=== PATIENT | female | born 1935 | race Caucasian/White ===

== ENCOUNTER 2017-04-13 10:23 | Observation (INO) | payer MEDICARE ==
--- NOTE | 2017-04-13 11:27 | EDM.PDOC ---
ED HPI GENERAL MEDICAL PROBLEM - General Chief Complaint: Neurological Problem Stated Complaint: blurred vision Time Seen by Provider: 04/13/17 11:01 Source of Information: Reports: Patient, Family (daughter and daughterinlaw) History Limitations: Reports: No Limitations - History of Present Illness INITIAL COMMENTS - FREE TEXT/NARRATIVE: Patient presents via ambulance and accompanied by dtr-n-law and daughter. Pt lives with dtr-n-law who tells me that at 0930 she went to get pt up from bed and found her already up and dressed which is a little unusual for her. Then pt 's right leg began jumping uncontrollably. She helped patient lay back down and then she kind of glazed over for 1-2 minutes. Pt was making eye contact but otherwise unresponsive. After this she helped patient get up and assisted her to the table for breakfast as usual but today pt had weakness of right leg and complained that it might give out on her. At the table she had another episode of eyes glazed over and otherwise unresponsive for a minute. Called ambulance and brought her in. - Related Data Allergies Allergy/AdvReac Type Severity Reaction Status Date / Time acetaminophen Allergy Cannot Verified 04/13/17 10:51 [From Tylenol-Codeine] Remember codeine Allergy Cannot Verified 04/13/17 10:51 [From Tylenol-Codeine] Remember Home Meds: Home Meds LORazepam [Ativan] 0.5 mg PO QAM 10/17/14 [History] PARoxetine [Paxil] 40 mg PO QAM 10/17/14 [History] Melatonin 3 mg PO BEDTIME 04/13/17 [History] Meloxicam 7.5 mg PO QAM 04/13/17 [History] Past Medical History HEENT History: Reports: Cataract Gastrointestinal History: Reports: Hiatal Hernia Genitourinary History: Reports: UTI, Recurrent 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: Musculoskeletal History: Reports: None Neurological History: Reports: None Psychiatric History: Reports: Anxiety, Depression Endocrine/Metabolic History: Reports: Obesity/BMI 30+ Dermatologic History: Reports: Other (See Below) Other Dermatologic History: CHRONIC 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 - Past Surgical History HEENT Surgical History: Reports: Cataract Surgery GI Surgical History: Reports: Cholecystectomy, Colonoscopy, EGD Female Surgical History: Reports: None Endocrine Surgical History: Reports: None Neurological Surgical History: Reports: None Musculoskeletal Surgical History: Reports: Other (See Below) Other Musculoskeletal Surgeries/Procedures:: BILATERAL WRIST FX Dermatological Surgical History: Reports: None Social & Family History - Tobacco Use Smoking Status *Q: Never Smoker Second Hand Smoke Exposure: No - Caffeine Use Caffeine Use: Reports: Coffee, Soda Other Caffeine Use: DIET AND CAFFEINE FREE. 1 CUP OF COFFEE A DAY - Recreational Drug Use Recreational Drug Use: No ED ROS GENERAL - Review of Systems Review Of Systems: See Below Constitutional: Denies: Fever, Chills HEENT: Reports: Vision Change (she is seeing double at times and lightheaded when upright; she says maybe the vision is more just a little fuzzy than double. ). Denies: Throat Pain Respiratory: Denies: Shortness of Breath, Cough Cardiovascular: Reports: Lightheadedness. Denies: Chest Pain, Edema, Syncope GI/Abdominal: Denies: Abdominal Pain, Diarrhea, Nausea, Vomiting : Denies: Dysuria, Frequency Musculoskeletal: Denies: Neck Pain, Shoulder Pain, Arm Pain, Back Pain Skin: Denies: Cyanosis, Jaundice, Mottled, Pallor, Diaphoresis Neurological: Reports: Dizziness. Denies: Confusion (no more than her usual mild dementia), Headache, Syncope, Trouble Speaking Psychiatric: Denies: Agitation, Anxiety ED EXAM, NEURO - Physical Exam Exam: See Below Exam Limited By: No Limitations General Appearance: Alert, WD/WN, No Apparent Distress Eye Exam: Bilateral Eye: EOMI (with full visual vail), Normal Inspection, PERRL Ears: Normal External Exam, Hearing Grossly Normal Nose: Normal Inspection, No Blood Throat/Mouth: Normal Inspection, Normal Lips, Normal Oropharynx, Normal Voice, No Airway Compromise Head Exam: Atraumatic, Normocephalic Neck: Normal Inspection, Supple, Non-Tender, Full Range of Motion. No: Carotid Bruit Respiratory/Chest: No Respiratory Distress, Lungs Clear, Wheezing (mild transient, not consistent) Cardiovascular: Normal Peripheral Pulses, Regular Rate, Rhythm, No Edema, No Murmur GI/Abdominal: Normal Bowel Sounds, Soft, No Organomegaly, Tender (luq, ruq, low abdomen). No: Rigid Neurological: Alert, Normal Mood/Affect, Normal Dorsiflexion, CN II-XII Intact, Normal Plantar Flexion, No Motor/Sensory Deficits, Oriented x 3, Straight Leg Raise (R) (symmetric with left 5/5), Other (Romberg normal). No: Abnormal Finger to Nose Back Exam: No: CVA Tenderness (L), CVA Tenderness (R) Extremities: Normal Inspection, Non-Tender Psychiatric: Normal Affect, Normal Mood Skin Exam: Warm, Dry, Intact, Normal Color, No Rash Course - Vital Signs Last Recorded V/S: Last Vital Signs Temp 98.0 F 04/13/17 10:30 Pulse 69 04/13/17 10:55 Resp 18 04/13/17 10:55 BP 155/61 H 04/13/17 10:55 Pulse Ox 92 L 04/13/17 10:55 - Orders/Labs/Meds Orders: Active Orders 24 hr Category Date Time Status EKG Documentation Completion [RC] ASDIRECTED Care 04/13/17 10:43 Active Head wo Cont [CT] Stat Exams 04/13/17 10:43 Taken CMP [COMPREHENSIVE METABOLIC PN,CMP] [CHEM] Stat Lab 04/13/17 10:55 Received PTT,PARTIAL THROMBOPLSTIN TIME [COAG] Stat Lab 04/13/17 10:35 Received TROPONIN I [CHEM] Stat Lab 04/13/17 10:35 Received UA W/MICROSCOPIC [URIN] Stat Lab 04/13/17 11:18 Uncollected EKG 12 Lead [EK] Routine Ther 04/13/17 10:42 Ordered Labs: Laboratory Tests 04/13/17 Range/Units 10:55 WBC 5.4 (5.0-10.0) 10^3/uL RBC 4.35 (3.80-5.50) 10^6/uL Hgb 13.8 (12.0-16.0) g/dL Hct 40.3 (37.0-47.0) % MCV 92.6 H (82.0-92.0) fL MCH 31.7 H (27.0-31.0) pg MCHC 34.2 (32.0-36.0) g/dL RDW 11.9 (11.5-14.5) % Plt Count 183 (150-300) 10^3/uL MPV 9.0 (7.4-10.4) fL Neut % (Auto) 62.9 (50.0-70.0) % Lymph % (Auto) 23.7 (20.0-40.0) % [place] % (Auto) 8.8 H (2.0-8.0) % Eos % (Auto) 3.6 H (1.0-3.0) % Baso % (Auto) 1.0 (0.0-1.0) % Neut # (Auto) 3.3 (2.5-7.0) 10^3/uL Lymph # (Auto) 1.3 (1.0-4.0) 10^3/uL [place] # (Auto) 0.5 (0.1-0.8) 10^3/uL Eos # (Auto) 0.2 (0.1-0.3) 10^3/uL Baso # (Auto) 0.1 (0.0-0.1) 10^3/uL - Re-Assessments/Exams Free Text/Narrative Re-Assessment/Exam: 04/13/17 12:15 Patient remained stable throughout ER course. Her right leg continues to feel a little unsupportive when she stands. Exam reveals symmetric strength and normal Romberg. Discussed findings with patient and her dtr-n-law. Also discussed with her PCP, Dr. Adriana Munoz; we will admit for observation. Departure - Departure Time of Disposition: 12:15 Disposition: Refer to Observation Condition: good Clinical Impression: TIA (transient ischemic attack) Qualifiers: Transient cerebral ischemia type: unspecified Qualified Code(s): G45.9 - Transient cerebral ischemic attack, unspecified - Discharge Information Forms: ED Department Discharge - My Orders Last 24 Hours: My Active Orders 04/13/17 10:35 PTT,PARTIAL THROMBOPLSTIN TIME [COAG] Stat TROPONIN I [CHEM] Stat 04/13/17 10:42 EKG 12 Lead [EK] Routine 04/13/17 10:43 EKG Documentation Completion [RC] ASDIRECTED Head wo Cont [CT] Stat 04/13/17 10:55 CMP [COMPREHENSIVE METABOLIC PN,CMP] [CHEM] Stat 04/13/17 11:18 UA W/MICROSCOPIC [URIN] Stat - Assessment/Plan Last 24 Hours: My Active Orders 04/13/17 10:35 PTT,PARTIAL THROMBOPLSTIN TIME [COAG] Stat TROPONIN I [CHEM] Stat 04/13/17 10:42 EKG 12 Lead [EK] Routine 04/13/17 10:43 EKG Documentation Completion [RC] ASDIRECTED Head wo Cont [CT] Stat 04/13/17 10:55 CMP [COMPREHENSIVE METABOLIC PN,CMP] [CHEM] Stat 04/13/17 11:18 UA W/MICROSCOPIC [URIN] Stat
[2017-04-13] MEDS ORDERED: Melatonin 3 MG Tab PO SCH (21:00)
[2017-04-13] MEDS: Sulfamethoxazole/Trimethoprim 800-160 MG Tab PO SCH (21:00)
[2017-04-13] MEDS ORDERED: Phenazopyridine 100 MG Tab PO PRN (21:55)
[2017-04-14 05:39] VITALS: BP 132/65
[2017-04-14] MEDS: Sulfamethoxazole/Trimethoprim 800-160 MG Tab PO SCH (08:20)
--- NOTE | 2017-04-14 08:56 | PCM.DCSUM1 ---
Discharge Summary - Hospital Course Free Text/Narrative:: Viridiana is being discharged today after an overnight observation due to some neurologic changes yesterday. She was already half dressed when her daughter in law went into her room to get her up, which is unusual. She then got up to walk to the kitchen and her leg started to shake uncontrollably (right). She sat down and then "all of a sudden I just lost her" per her daughter in law. She states her eyes were open but she was not responding at all. This lasted about a minute or two and then she came back and was fine, they went to the kitchen to sit down for breakfast and she had another episode where she did not respond and started to "slump over" and so they called an ambulance and she was brought to the ER. EKG was negative, CT head was negative, troponin <0.04. The only thing really off on her labs was a mild UTI. She was started on Bactrim DS 1 tab PO BID and this will last for 5 days. She had no further neurologic changes while in the hospital and she is asking to go home. I did discuss with the daughter in law about whether or not they wanted to start ASA or plavix as this was most likely a TIA but they declined doing anything additional at this time. - Discharge Data Discharge Date: 04/14/17 Discharge Disposition: Home, Self-Care 01 Condition: Good - Discharge Diagnosis/Problem(s) (1) TIA (transient ischemic attack) SNOMED Code(s): 997093833, [id number] ICD Code: G45.9 - TRANSIENT CEREBRAL ISCHEMIC ATTACK, UNSPECIFIED Status: Acute Current Visit: Yes Qualifiers: Transient cerebral ischemia type: unspecified Qualified Code(s): G45.9 - Transient cerebral ischemic attack, unspecified - Discharge Plan Home Medications: Home Meds LORazepam [Ativan] 0.5 mg PO QAM 10/17/14 [History] PARoxetine [Paxil] 40 mg PO QAM 10/17/14 [History] Melatonin 3 mg PO BEDTIME 04/13/17 [History] Meloxicam 7.5 mg PO QAM 04/13/17 [History] Referrals: Adriana Wang MD [Primary Care Provider] - - Discharge Summary/Plan Comment DC Time >30 min.: No - General Info Date of Service: 04/14/17 Admission Dx/Problem (Free Text: TIA - Patient Data Vitals - Most Recent: Last Vital Signs Temp 97.8 F 04/14/17 05:38 Pulse 70 04/14/17 05:38 Resp 18 04/14/17 05:38 BP 132/65 04/14/17 05:38 Pulse Ox 93 L 04/14/17 05:38 Weight - Most Recent: 200 lb I&O - Last 24 hours: Intake & Output 04/13/17 04/14/17 04/14/17 22:59 06:59 14:59 Intake Total 655 300 Balance 655 300 Med Orders - Current: Current Medications [facility]) [facility] [place] Last Admin: 04/14/17 08:20 Dose: 0.5 mg Melatonin (Melatonin) 3 mg PO BEDTIME [facility] Last Admin: 04/13/17 21:00 Dose: 3 mg Meloxicam (Mobic) [facility] [place] Last Admin: 04/14/17 08:21 Dose: 7.5 mg Paroxetine HCl (Paxil) 40 mg PO [facility] Last Admin: 04/14/17 08:20 Dose: 40 mg Phenazopyridine HCl (Pyridium) 100 mg PO TID PRN PRN Reason: urinary pain Last Admin: 04/13/17 22:01 Dose: 100 mg Trimethoprim/Sulfamethoxazole (Septra Ds) 1 tab PO BID [facility] Stop: 04/18/17 21:01 Last Admin: 04/14/17 08:20 Dose: 1 tab Discontinued Medications Meloxicam (Mobic) 7.5 mg PO [facility] - Exam General: Reports: alert, cooperative, no acute distress Lungs: Reports: Clear to auscultation, Normal respiratory effort Cardiovascular: Reports: Regular Rate, Regular Rhythm, No Murmurs Neurological: Reports: no new focal deficit, normal speech, strength equal bilateral, sensation intact, cranial nerves intact *Q Meaningful Use (DIS) - VTE *Q VTE Criteria *Q: - Stroke *Q Stroke Criteria *Q: - AMI *Q AMI Criteria *Q:
[2017-04-14] MEDS ORDERED: Meloxicam 7.5 MG Tab PO SCH (09:00)
[2017-04-14] MEDS ORDERED: LORazepam 0.5 MG Tab PO SCH (09:00)
[2017-04-14] MEDS ORDERED: PARoxetine 20 MG Tab PO SCH (09:00)
== END 2017-04-14 10:35 | disposition home or self-care (01) ==
LOC: KA.ED 10:23 → KA.MS 12:05
PROVIDERS: ADMIT Physician Assistant Surgical; ATTEND Internal Medicine
DX: G45.9 Transient cerebral ischemic attack, unspecified (principal); F41.9 Anxiety disorder, unspecified; F32.9 Major depressive disorder, single episode, unspecified; E66.9 Obesity, unspecified; Z68.30 Body mass index [BMI] 30.0-30.9, adult; Z79.899 Other long term (current) drug therapy; Z88.8 Allergy status to other drugs, medicaments and biological substances; Z90.49 Acquired absence of other specified parts of digestive tract; Z98.890 Other specified postprocedural states
CPT/HCPCS: 36415; 70450; 80053; 81001; 84484; 85025; 85730; 87086; 87088; 87186; 93005; 99285; A9270; G0378; 99219

== ENCOUNTER 2017-07-24 09:42 | Emergency (ER) | payer MEDICARE ==
[2017-07-24 09:53] VITALS: BP 153/67
--- NOTE | 2017-07-24 10:28 | EDM.PDOC ---
ED HPI GENERAL MEDICAL PROBLEM - General Chief Complaint: Genitourinary Problem Stated Complaint: UTI?? Time Seen by Provider: 07/24/17 10:12 Source of Information: Reports: Patient, Family ([id number]) History Limitations: Reports: No Limitations - History of Present Illness INITIAL COMMENTS - FREE TEXT/NARRATIVE: [id number] brings mom with dysuria that started this morning. She recognizes the symptoms and is sure she has a bladder infection. No fever, vomiting, dizziness or abdominal pain. 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: Musculoskeletal History: Reports: None Neurological History: Reports: CVA Psychiatric History: Reports: Anxiety, Dementia, Depression Endocrine/Metabolic History: Reports: Obesity/BMI 30+ Dermatologic History: Reports: Other (See Below) Other Dermatologic History: CHRONIC 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 - Past Surgical History HEENT Surgical History: Reports: Cataract Surgery GI Surgical History: Reports: Cholecystectomy, Colonoscopy, EGD Female Surgical History: Reports: None Endocrine Surgical History: Reports: None Neurological Surgical History: Reports: None Musculoskeletal Surgical History: Reports: Other (See Below) Other Musculoskeletal Surgeries/Procedures:: BILATERAL WRIST FX Dermatological Surgical History: Reports: None Social & Family History - Family History Family Medical History: Noncontributory - Tobacco Use Smoking Status *Q: Never Smoker Second Hand Smoke Exposure: No - Caffeine Use Caffeine Use: Reports: Coffee Other Caffeine Use: DIET AND CAFFEINE FREE. 1 CUP OF COFFEE A DAY - Recreational Drug Use Recreational Drug Use: No ED ROS GENERAL - Review of Systems Review Of Systems: ROS reveals no pertinent complaints other than HPI. ED EXAM, RENAL/ - Physical Exam Exam: See Below Exam Limited By: No Limitations General Appearance: Alert, WD/WN, No Apparent Distress Eye Exam: Bilateral Eye: EOMI, Normal Inspection, PERRL Ears: Normal External Exam, Hearing Grossly Normal Nose: Normal Inspection, No Blood Throat/Mouth: Normal Inspection, Normal Lips, Normal Voice, No Airway Compromise Head: Atraumatic, Normocephalic Neck: Full Range of Motion Respiratory/Chest: No Respiratory Distress, Lungs Clear, Normal Breath Sounds, No Accessory Muscle Use Cardiovascular: Regular Rate, Rhythm, No Murmur GI/Abdominal: Normal Bowel Sounds, Soft, Non-Tender, No Organomegaly Back Exam: No: CVA Tenderness (L), CVA Tenderness (R) Extremities: Normal Inspection, Normal Range of Motion, No Pedal Edema Neurological: Alert, Oriented, Normal Cognition, No Motor/Sensory Deficits Psychiatric: Normal Affect, Normal Mood Skin Exam: Warm, Dry, Intact, Normal Color, No Rash Course - Vital Signs Last Recorded V/S: Last Vital Signs Temp 98.0 F 07/24/17 09:46 Pulse 80 07/24/17 09:46 Resp 18 07/24/17 09:46 BP 153/67 H 07/24/17 09:46 Pulse Ox 97 07/24/17 09:46 - Orders/Labs/Meds Labs: Laboratory Tests 07/24/17 Range/Units 09:45 Specimen Type Urinvoid Urine Color Yellow (YELLOW) Urine Appearance Cloudy H (CLEAR) Urine pH 5.5 (5.0-9.0) Ur Specific [place] >= 1.030 (1.005-1.030) Urine Protein 100 H (NEGATIVE) mg/dL Urine Glucose (UA) Negative (NEGATIVE) mg/dL Urine Ketones Negative (NEGATIVE) mg/dL Urine Occult Blood Moderate H (NEGATIVE) Urine Nitrite Negative (NEGATIVE) Urine Bilirubin Negative (NEGATIVE) Urine Urobilinogen 0.2 (0.2-1.0) E.U./dL Ur Leukocyte Esterase Small H (NEGATIVE) Urine RBC 10-20 H /HPF Urine WBC >100 H /HPF Ur Epithelial Cells Few /LPF Urine Bacteria Moderate H (NONE TO FEW) /HPF - Re-Assessments/Exams Free Text/Narrative Re-Assessment/Exam: 07/24/17 10:28 Discussed findings and treatment plan with pt and dtr-n-law. Pt discharged in stable condition. Departure - Departure Time of Disposition: 10:23 Disposition: Home, Self-Care 01 Condition: Good Clinical Impression: UTI (urinary tract infection), bacterial - Discharge Information Referrals: Adriana Wang MD [Primary Care Provider] - Additional Instructions: 1. Take antibiotic as directed. 2. Drink 8 cups of water daily. 3. Follow up with your PCP in 7-10 days for recheck. 4. Recheck sooner if any worsening.
== END 2017-07-24 10:35 | disposition home or self-care (01) ==
LOC: KA.ED 09:42
DX: N39.0 Urinary tract infection, site not specified (principal); B96.89 Other specified bacterial agents as the cause of diseases classified elsewhere; F41.9 Anxiety disorder, unspecified; F32.9 Major depressive disorder, single episode, unspecified; F03.90 Unspecified dementia, unspecified severity, without behavioral disturbance, psychotic disturbance, mood disturbance, and anxiety; Z87.440 Personal history of urinary (tract) infections; Z90.49 Acquired absence of other specified parts of digestive tract; Z88.5 Allergy status to narcotic agent; Z98.49 Cataract extraction status, unspecified eye; Z86.73 Personal history of transient ischemic attack (TIA), and cerebral infarction without residual deficits; Z98.890 Other specified postprocedural states
CPT/HCPCS: 81001; 87086; 99283

== ENCOUNTER 2017-10-02 01:25 | Inpatient (IN) | payer MEDICARE ==
--- NOTE | 2017-10-02 01:56 | EDM.PDOC ---
ED HPI GENERAL MEDICAL PROBLEM - General Chief Complaint: Neuro Symptoms/Deficits Stated Complaint: L side weakness Time Seen by Provider: 10/02/17 01:35 Source of Information: Reports: Patient, EMS, Family History Limitations: Reports: No Limitations - History of Present Illness INITIAL COMMENTS - FREE TEXT/NARRATIVE: 82 YO WF presents to ER by EMS with 8 hour history of left sided weakness. Daughter states patient was out to dinner tonight when she began to complain of difficulty ambulating due to some left lower extremity weakness. Pt was able to have dinner and ambulate with minimal difficulty to the car and home. Pt was able to sit in her chair and around 9:30pm was ready for bed. Pt was able to ambulate to her bedroom while still complaining of some mild left sided lower extremity weakness. Pt woke multiple times (approximately every 30 minutes) to use the restroom and was unsteady with her gait. Pt fell twice but denies any injury. Pt woke at 1:30am unable to move her left side prompting EMS to transfer to ER. Pt's symptoms have resolved at time of history and physical exam. Pt and family deny any slurred speech, dysphagia, confusion. Pt denies any pain- no chest pain, abdominal pain or dysuria. Pt reports urinary frequency and urgency. Onset Date: 10/01/17 Onset Time: 18:00 Duration: Hour(s): (8) Location: Reports: Upper Extremity, Left, Lower Extremity, Left, Generalized Severity: Mild Improves with: Reports: None Worsens with: Reports: None Associated Symptoms: Reports: No Other Symptoms, Weakness. Denies: Confusion, Chest Pain, Cough, Fever/Chills, Headaches, Nausea/Vomiting, Shortness of Breath , Syncope - Related Data Allergies Allergy/AdvReac Type Severity Reaction Status Date / Time codeine Allergy Cannot Verified 10/02/17 01:28 Remember Home Meds: Home Meds LORazepam [Ativan] 0.5 mg PO QAM 10/17/14 [History] PARoxetine [Paxil] 40 mg PO QAM 10/17/14 [History] Meloxicam 7.5 mg PO QAM 04/13/17 [History] Acetaminophen [Tylenol] 650 mg PO BID PRN 07/24/17 [History] Past Medical History HEENT History: Reports: Cataract Gastrointestinal History: Reports: Hiatal Hernia Genitourinary History: Reports: UTI, Recurrent [employer] History: Reports: Musculoskeletal History: Reports: None Neurological History: Reports: CVA Psychiatric History: Reports: Anxiety, Dementia, Depression Endocrine/Metabolic History: Reports: Obesity/BMI 30+ Dermatologic History: Reports: Other (See Below) Other Dermatologic History: CHRONIC 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 - Past Surgical History HEENT Surgical History: Reports: Cataract Surgery GI Surgical History: Reports: Cholecystectomy, Colonoscopy, EGD Female Surgical History: Reports: None Endocrine Surgical History: Reports: None Neurological Surgical History: Reports: None Musculoskeletal Surgical History: Reports: Other (See Below) Other Musculoskeletal Surgeries/Procedures:: BILATERAL WRIST FX Dermatological Surgical History: Reports: None Social & Family History - Family History Family Medical History: Noncontributory - Tobacco Use Smoking Status *Q: Never Smoker Second Hand Smoke Exposure: No - Caffeine Use Caffeine Use: Reports: Coffee Other Caffeine Use: DIET AND CAFFEINE FREE. 1 CUP OF COFFEE A DAY - Recreational Drug Use Recreational Drug Use: No ED ROS GENERAL - Review of Systems Review Of Systems: See Below Constitutional: Reports: No Symptoms HEENT: Reports: No Symptoms Respiratory: Reports: No Symptoms Cardiovascular: Reports: No Symptoms Endocrine: Reports: No Symptoms GI/Abdominal: Reports: No Symptoms : Reports: Frequency, Urgency Musculoskeletal: Reports: No Symptoms Skin: Reports: No Symptoms Neurological: Reports: Difficulty Walking, Weakness, Gait Disturbance. Denies: Confusion, Dizziness, Headache, Numbness, Syncope, Trouble Speaking, Change in Speech Psychiatric: Reports: No Symptoms Hematologic/Lymphatic: Reports: No Symptoms Immunologic: Reports: No Symptoms ED EXAM, NEURO - Physical Exam Exam: See Below Exam Limited By: No Limitations General Appearance: Alert, WD/WN, No Apparent Distress Eye Exam: Bilateral Eye: EOMI, PERRL Throat/Mouth: Normal Inspection, Normal Lips, Normal Teeth, Normal Gums, Normal Oropharynx, Normal Voice, No Airway Compromise Head Exam: Atraumatic, Normocephalic Neck: Normal Inspection, Supple, Non-Tender, Full Range of Motion Respiratory/Chest: No Respiratory Distress, Lungs Clear, Normal Breath Sounds, No Accessory Muscle Use, Chest Non-Tender Cardiovascular: Normal Peripheral Pulses, Regular Rate, Rhythm, No Edema, No Gallop, No JVD, No Murmur, No Rub GI/Abdominal: Normal Bowel Sounds, Soft, Non-Tender, No Organomegaly, No Distention, No Abnormal Bruit, No Mass Neurological: Alert, Normal Mood/Affect, Normal Dorsiflexion, CN II-XII Intact, Normal Plantar Flexion, Normal Reflexes, No Motor/Sensory Deficits, Oriented x 3 Back Exam: Normal Inspection, Full Range of Motion, NT Extremities: Normal Inspection, Normal Range of Motion, Non-Tender, No Pedal Edema, Normal Capillary Refill Psychiatric: Normal Affect, Normal Mood Skin Exam: Warm, Dry, Intact, Normal Color, No Rash EKG INTERPRETATION EKG Date: 10/02/17 Time: 01:59 Rhythm: NSR Rate (Beats/Min): 73 [place]: Normal P-Wave: Present QRS: Normal ST-T: Normal QT: Normal Comparison: No Change Course - Vital Signs Last Recorded V/S: Last Vital Signs Temp 37.4 C 10/02/17 01:30 Pulse 73 10/02/17 01:55 Resp 18 10/02/17 02:26 BP 191/77 H 10/02/17 02:26 Pulse Ox 92 L 10/02/17 02:26 - Orders/Labs/Meds Orders: Active Orders 24 hr Category Date Time Status EKG Documentation Completion [RC] ASDIRECTED Care 10/02/17 01:48 Ordered Chest 1V Frontal [CR] Stat Exams 10/02/17 01:48 Ordered Head wo Cont [CT] Stat Exams 10/02/17 01:48 Ordered ESR [SEDIMENTATION RATE MANUAL] [HEME] Stat Lab 10/02/17 01:40 Stop Req Sodium Chloride 0.9% [Normal Saline] 500 ml Med 10/02/17 02:00 Ordered IV .BOLUS EKG 12 Lead [EK] Routine Ther 10/02/17 01:48 Ordered Medication Orders Sodium Chloride (Normal Saline) 500 mls @ 500 drops/hr IV .BOLUS BEKA Labs: Laboratory Tests 10/02/17 10/02/17 10/02/17 Range/Units 01:40 01:40 01:40 WBC 14.4 H (5.0-10.0) 10^3/uL RBC 4.39 (3.80-5.50) 10^6/uL Hgb 13.6 (12.0-16.0) g/dL Hct 42.0 (37.0-47.0) % MCV 95.8 H (82.0-92.0) fL MCH 31.0 (27.0-31.0) pg MCHC 32.4 (32.0-36.0) g/dL RDW 12.2 (11.5-14.5) % Plt Count 22 L* (150-300) 10^3/uL MPV 9.6 (7.4-10.4) fL PT 9.5 (8.9-11.4) SEC INR 0.9 (0.9-1.1) APTT (20.8-31.2) SEC Sodium 140 (136-145) mmol/L Potassium 4.0 (3.3-5.3) mmol/L Chloride 104 (98-115) mmol/L Carbon Dioxide 25.1 (21.0-32.0) mmol/L BUN 20 (6-25) mg/dL Creatinine 0.95 (0.51-1.17) mg/dL Est Cr Clr Drug Dosing 47.64 mL/min Estimated GFR (MDRD) 57 mL/min Glucose 96 (70-110) mg/dL POC Glucose (74-106) mg/dl Calcium 9.5 (8.7-10.3) mg/dL Total Bilirubin 0.4 (0.2-1.0) mg/dL AST 21 (15-37) U/L ALT 21 (12-78) U/L Alkaline Phosphatase 87 (46-116) IU/L Creatine Kinase 65 (26-276) U/L CK-MB (CK-2) 1.20 (0.00-4.30) ng/mL Troponin I < 0.04 (0.00-0.070) ng/mL Total Protein 7.0 (6.4-8.2) g/dL Albumin 3.87 (3.00-4.80) g/dL Specimen Type Urine Color (YELLOW) Urine Appearance (CLEAR) Urine pH (5.0-9.0) Ur Specific [place] (1.005-1.030) Urine Protein (NEGATIVE) mg/dL Urine Glucose (UA) (NEGATIVE) mg/dL Urine Ketones (NEGATIVE) mg/dL Urine Occult Blood (NEGATIVE) Urine Nitrite (NEGATIVE) Urine Bilirubin (NEGATIVE) Urine Urobilinogen (0.2-1.0) E.U./dL Ur Leukocyte Esterase (NEGATIVE) Urine RBC /HPF Urine WBC /HPF Ur Epithelial Cells /LPF Urine Bacteria (NONE TO FEW) /HPF 10/02/17 10/02/17 10/02/17 Range/Units 01:40 01:45 02:05 WBC (5.0-10.0) 10^3/uL RBC (3.80-5.50) 10^6/uL Hgb (12.0-16.0) g/dL Hct (37.0-47.0) % MCV (82.0-92.0) fL MCH (27.0-31.0) pg MCHC (32.0-36.0) g/dL RDW (11.5-14.5) % Plt Count (150-300) 10^3/uL MPV (7.4-10.4) fL PT (8.9-11.4) SEC INR (0.9-1.1) APTT 22.0 (20.8-31.2) SEC Sodium (136-145) mmol/L Potassium (3.3-5.3) mmol/L Chloride (98-115) mmol/L Carbon Dioxide (21.0-32.0) mmol/L BUN (6-25) mg/dL Creatinine (0.51-1.17) mg/dL Est Cr Clr Drug Dosing mL/min Estimated GFR (MDRD) mL/min Glucose (70-110) mg/dL POC Glucose 92 (74-106) mg/dl Calcium (8.7-10.3) mg/dL Total Bilirubin (0.2-1.0) mg/dL AST (15-37) U/L ALT (12-78) U/L Alkaline Phosphatase (46-116) IU/L Creatine Kinase (26-276) U/L CK-MB (CK-2) (0.00-4.30) ng/mL Troponin I (0.00-0.070) ng/mL Total Protein (6.4-8.2) g/dL Albumin (3.00-4.80) g/dL Specimen Type Urin[place]ath Urine Color Light yellow (YELLOW) Urine Appearance Slightly cloudy H (CLEAR) Urine pH 6.5 (5.0-9.0) Ur Specific [place] 1.010 (1.005-1.030) Urine Protein Negative (NEGATIVE) mg/dL Urine Glucose (UA) Negative (NEGATIVE) mg/dL Urine Ketones Negative (NEGATIVE) mg/dL Urine Occult Blood Trace-intact H (NEGATIVE) Urine Nitrite Negative (NEGATIVE) Urine Bilirubin Negative (NEGATIVE) Urine Urobilinogen 0.2 (0.2-1.0) E.U./dL Ur Leukocyte Esterase Trace H (NEGATIVE) Urine RBC 5-10 H /HPF Urine WBC 5-10 H /HPF Ur Epithelial Cells Moderate H /LPF Urine Bacteria Moderate H (NONE TO FEW) /HPF Meds: Medications Generic Name Dose Route Start Last Admin Trade Name Freq PRN Reason Stop Dose Admin Sodium Chloride 500 mls @ 500 drops/hr 10/02/17 02:00 Normal Saline IV .BOLUS BEKA - Radiology Interpretation Free Text/Narrative:: CT head- NAD CXR- NAD; CM Departure - Departure Time of Disposition: 02:56 Disposition: Admitted As Inpatient 68 Condition: Fair Clinical Impression: Weakness, Thrombocytopenia Urinary tract infection Qualifiers: Urinary tract infection type: acute cystitis Hematuria presence: without hematuria Qualified Code(s): N30.00 - Acute cystitis without hematuria Hypertension Qualifiers: Hypertension type: unspecified Qualified Code(s): I10 - Essential (primary) hypertension - Discharge Information Forms: ED Department Discharge - My Orders Last 24 Hours: My Active Orders 10/02/17 01:40 ESR [SEDIMENTATION RATE MANUAL] [HEME] Stat 10/02/17 01:48 EKG Documentation Completion [RC] ASDIRECTED Chest 1V Frontal [CR] Stat Head wo Cont [CT] Stat EKG 12 Lead [EK] Routine 10/02/17 02:00 Sodium Chloride 0.9% [Normal Saline] 500 ml IV .BOLUS - Assessment/Plan Last 24 Hours: My Active Orders 10/02/17 01:40 ESR [SEDIMENTATION RATE MANUAL] [HEME] Stat 10/02/17 01:48 EKG Documentation Completion [RC] ASDIRECTED Chest 1V Frontal [CR] Stat Head wo Cont [CT] Stat EKG 12 Lead [EK] Routine 10/02/17 02:00 Sodium Chloride 0.9% [Normal Saline] 500 ml IV .BOLUS Assessment:: 1. left sided weakness- resolved 2. hypertension 3. urinary tract infection 4. thrombocytopenia 5. leukocytosis Plan: 1. admit to hospital- [facility] 2. rocephin 1g IV QD 3. vasotec 1.25mg IV PRN hypertension 4. ASA 325mg PO QD 5. recheck CBC in am
[2017-10-02] MEDS ORDERED: Sodium Chloride 0.9% 500 ML IV SCH (02:00)
[2017-10-02 02:15] LABS: CHLORIDE,CL 104 mmol/L (98-115); SODIUM,NA 140 mmol/L (136-145)
[2017-10-02] MEDS ORDERED: cefTRIAXone 1 GM Vial ONE (03:03)
[2017-10-02] MEDS ORDERED: Enalaprilat 1.25 MG/ML SDV IVPUSH PRN (03:05)
[2017-10-02] MEDS ORDERED: Acetaminophen 325 MG Tab PO PRN (03:06)
[2017-10-02] MEDS ORDERED: cefTRIAXone 1 GM in Sodium Chloride 0.9% 50 ML IV SCH (03:34)
[2017-10-02] MEDS: Sodium Chloride 0.9% 5 ML Syringe FLUSH PRN ×2 (03:38→11:28)
[2017-10-02] MEDS ORDERED: cefTRIAXone 1 GM Vial IVPUSH SCH (04:00)
[2017-10-02] MEDS: Aspirin 325 MG Tab.EC PO SCH ×2 (04:06→09:23)
[2017-10-02] MEDS ORDERED: EPINEPHrine 1:10,000 1 MG/10 ML Syringe IVPUSH PRN (07:27)
[2017-10-02] MEDS ORDERED: Nitroglycerin 0.4 MG Tab.SL SL PRN (07:27)
[2017-10-02] MEDS ORDERED: Atropine 0.1 MG/ML 10 ML Syringe IVPUSH PRN (07:27)
[2017-10-02] MEDS ORDERED: Lidocaine 2% 100 MG/5 ML Syringe IVPUSH PRN (07:27)
[2017-10-02] MEDS ORDERED: PAROXETINE 40 MG PO SCH (09:00)
[2017-10-02] MEDS: LORazepam 0.5 MG Tab PO SCH (09:23)
[2017-10-02] MEDS ORDERED: PARoxetine 20 MG Tab PO ONE (09:23)
--- NOTE | 2017-10-02 11:51 | PCM.PN ---
- General Info Date of Service: 10/02/17 Admission Dx/Problem (Free Text): TIA, left sided weakness. - Review of Systems Systems Review Comment:: Viridiana is seen today on inpatient rounds. She was admitted on 10/01/17 with left sided weakness and concern for TIA. Symptoms had been present for about 8 hours prior to EMS transportation. Her [id number] provides some of the history. Viridiana states "I just can't make my legs work, it's like they are bolted to the cement floor". She was also noted to have a mild UTI and has been started on ceftriaxone, culture pending. She has no KENNEDY, she feels slightly dizzy today. She was noted to have HTN, had been on HCTZ in the past but was discontinued due to normal blood pressure and desires to reduce medications that were unnecessary. Her [id number] also would like abdominal imaging as Viridiana's weight has been stable but her abdomen size is increasing and she complains of generalized abdominal pain. She has had BM's. No visual changes, no numbness or tingling. - Patient Data Vitals - Most Recent: Last Vital Signs Temp 99.1 F 10/02/17 07:00 Pulse 82 10/02/17 07:00 Resp 18 10/02/17 07:00 BP 164/81 H 10/02/17 07:00 Pulse Ox 94 L 10/02/17 07:00 Weight - Most Recent: 200 lb I&O - Last 24 Hours: Intake & Output 10/01/17 10/02/17 10/02/17 22:59 06:59 14:59 Intake Total 60 Output Total 550 Balance -490 Med Orders - Current: Current Medications Acetaminophen (Tylenol) 650 mg PO BID PRN PRN Reason: Pain Atropine Sulfate (Atropine 0.1 Mg/Ml) 0 mg IVPUSH ASDIRECTED PRN PRN Reason: Heart Ceftriaxone Sodium (Rocephin) 1 gm IVPUSH Q24H [facility] Last Admin: 10/02/17 04:08 Dose: Not Given Clopidogrel Bisulfate (Plavix) 75 mg PO DAILY [facility] Epinephrine HCl (Epinephrine 1:10,000) 1 mg IVPUSH ASDIRECTED PRN PRN Reason: Heart Lidocaine HCl (Xylocaine 2%) 0 mg IVPUSH ASDIRECTED PRN PRN Reason: Heart Lisinopril (Prinivil) 10 mg PO DAILY [facility] Lorazepam (Ativan) 0.5 mg PO QAM [facility] Last Admin: 10/02/17 09:23 Dose: 0.5 mg Nitroglycerin (Nitrostat) 0.4 mg SL ASDIRECTED PRN PRN Reason: Heart Non-Formulary Medication (Paroxetine [Paxil]) 40 mg PO QAM [facility] Last Admin: 10/02/17 09:23 Dose: 40 mg Non-Formulary Medication (Meloxicam [Meloxicam]) 7.5 mg PO QAM [facility] Sodium Chloride (Syrex Flush) 5 ml FLUSH Q8HR PRN PRN Reason: Keep Vein Open Last Admin: 10/02/17 11:28 Dose: 5 ml Discontinued Medications Aspirin (Ecotrin) 325 mg PO DAILY [facility] Last Admin: 10/02/17 09:23 Dose: 325 mg Ceftriaxone Sodium (Rocephin) Confirm Administered Dose 1 gm .ROUTE .STK-MED ONE Stop: 10/02/17 03:04 Last Admin: 10/02/17 03:30 Dose: 1 gm Enalaprilat (Vasotec Iv) 1.25 mg IVPUSH Q6H PRN PRN Reason: Hypertension Sodium Chloride (Normal Saline) 500 mls @ 500 drops/hr IV .BOLUS BEKA - Exam General: Alert, Oriented, Cooperative, No Acute Distress Lungs: Clear to Auscultation, Normal Respiratory Effort Cardiovascular: Regular Rate, Regular Rhythm, No Murmurs GI/Abdominal Exam: Normal Bowel Sounds, Soft, No Organomegaly, No Distention, Tender Extremities: Normal Inspection, No Pedal Edema Neurological: No New Focal Deficit, Normal Speech, Strength Equal Bilateral ( Despite her stating that she cannot get her legs to move she is able to move them freely on command while sitting in the chair and has equal strength bilaterally against resistance.), Sensation Intact, Cranial Nerves Intact - Problem List & Annotations (1) Hypertension SNOMED Code(s): 64089369 Code(s): I10 - ESSENTIAL (PRIMARY) HYPERTENSION Status: Acute Current Visit: Yes Qualifiers: Hypertension type: unspecified Qualified Code(s): I10 - Essential (primary ) hypertension (2) Urinary tract infection SNOMED Code(s): 80319714 Code(s): N39.0 - URINARY TRACT INFECTION, SITE NOT SPECIFIED Status: Acute Current Visit: Yes Qualifiers: Urinary tract infection type: acute cystitis Hematuria presence: without hematuria Qualified Code(s): N30.00 - Acute cystitis without hematuria (3) Weakness SNOMED Code(s): 66055263 Code(s): R53.1 - WEAKNESS Status: Acute Current Visit: Yes (4) TIA (transient ischemic attack) SNOMED Code(s): 411873742 Code(s): G45.9 - TRANSIENT CEREBRAL ISCHEMIC ATTACK, UNSPECIFIED Status: Acute Current Visit: No Qualifiers: Transient cerebral ischemia type: unspecified Qualified Code(s): G45.9 - Transient cerebral ischemic attack, unspecified (5) Dementia SNOMED Code(s): 70657991 Code(s): F03.90 - UNSPECIFIED DEMENTIA WITHOUT BEHAVIORAL DISTURBANCE Status: Acute Current Visit: Yes (6) Increased abdominal girth SNOMED Code(s): 472386123 Code(s): R19.8 - OTH SYMPTOMS AND SIGNS INVOLVING THE DGSTV SYS AND ABDOMEN Status: Acute Current Visit: Yes - Problem List Review Problem List Initiated/Reviewed/Updated: Yes - My Orders Last 24 Hours: My Active Orders 10/02/17 03:45 CULTURE WOUND [RM] Routine 10/02/17 11:45 PT Evaluation and Treatment [CONS] Routine Abdomen Pelvis w Cont [CT] Routine Clopidogrel [Plavix] 75 mg PO DAILY Lisinopril [Prinivil] 10 mg PO DAILY 10/03/17 09:00 Meloxicam [Meloxicam] 7.5 mg PO QAM - Assessment Assessment:: TIA Weakness UTI HTN Arthritis Dementia Increasing abdominal girth - Plan Plan:: TIA. Discontinue ASA, start plavix 75mg PO daily. MRI on of brain with and without contrast as well as carotid U/S bilaterally. Weakness. PT eval and treat on Wednesday. UTI. Continue rocephin, culture pending. HTN. Start lisinopril 10 mg PO daily. Arthritis. Restart meloxicam. Dementia. Stable. Increasing abdominal girth. CT abdomen/pelvis with contrast today.
[2017-10-02] MEDS: Clopidogrel 75 MG Tab PO SCH (12:23)
[2017-10-02] MEDS: Lisinopril 10 MG Tab PO SCH (12:25)
[2017-10-02] MEDS: Iopamidol 612 MG/ML 75 ML Bottle IV ONE ×2 (15:40→18:26)
[2017-10-02] MEDS ORDERED: Sodium Chloride 0.9% 50 ML SDV FLUSH SCH (16:30)
[2017-10-03] MEDS ORDERED: cefTRIAXone 1 GM Vial IM ONE (00:43)
[2017-10-03 08:39] LABS: CHLORIDE,CL 106 mmol/L (98-115); SODIUM,NA 141 mmol/L (136-145)
[2017-10-03] MEDS: Lisinopril 10 MG Tab PO SCH (09:18)
[2017-10-03] MEDS: Clopidogrel 75 MG Tab PO SCH (09:18)
[2017-10-03] MEDS: PARoxetine 20 MG Tab PO SCH (09:18)
[2017-10-03] MEDS: LORazepam 0.5 MG Tab PO SCH (09:19)
--- NOTE | 2017-10-03 11:43 | PCM.PN ---
- General Info Date of Service: 10/03/17 Admission Dx/Problem (Free Text): TIA, left sided weakness. Subjective Update: Pt reports she is feeling well today. Pt denies any abdominal pain today. Pt states she is eating and drinking well. Pt reports she was able to ambulate to bathroom and take a shower with assistance today. Functional Status: Reports: Pain Controlled, Tolerating Diet, Ambulating, Urinating - Review of Systems General: Reports: No Symptoms HEENT: Reports: No Symptoms Pulmonary: Reports: No Symptoms Cardiovascular: Reports: No Symptoms Gastrointestinal: Reports: No Symptoms Genitourinary: Reports: No Symptoms Musculoskeletal: Reports: No Symptoms Skin: Reports: No Symptoms Neurological: Reports: No Symptoms Psychiatric: Reports: No Symptoms - Patient Data Vitals - Most Recent: Last Vital Signs Temp 36.9 C 10/03/17 06:52 Pulse 72 10/03/17 06:52 Resp 20 10/03/17 06:52 BP 137/76 10/03/17 09:18 Pulse Ox 92 L 10/03/17 06:52 Weight - Most Recent: 90.718 kg I&O - Last 24 Hours: Intake & Output 10/02/17 10/03/17 10/03/17 22:59 06:59 14:59 Intake Total 1250 220 Output Total 750 700 Balance 500 -480 Lab Results Last 24 Hours: Laboratory Results - last 24 hr 10/03/17 10/03/17 Range/Units 07:30 07:30 WBC 7.1 (5.0-10.0) 10^3/uL RBC 4.22 (3.80-5.50) 10^6/uL Hgb 12.8 (12.0-16.0) g/dL Hct 40.0 (37.0-47.0) % MCV 94.7 H (82.0-92.0) fL MCH 30.4 (27.0-31.0) pg MCHC 32.1 (32.0-36.0) g/dL RDW 12.1 (11.5-14.5) % Plt Count 187 (150-300) 10^3/uL MPV 8.9 (7.4-10.4) fL Neut % (Auto) 58.2 (50.0-70.0) % Lymph % (Auto) 27.4 (20.0-40.0) % [place] % (Auto) 10.3 H (2.0-8.0) % Eos % (Auto) 3.2 H (1.0-3.0) % Baso % (Auto) 0.9 (0.0-1.0) % Neut # (Auto) 4.2 (2.5-7.0) 10^3/uL Lymph # (Auto) 1.9 (1.0-4.0) 10^3/uL [facility] # (Auto) 0.7 (0.1-0.8) 10^3/uL Eos # (Auto) 0.2 (0.1-0.3) 10^3/uL Baso # (Auto) 0.1 (0.0-0.1) 10^3/uL Sodium 141 (136-145) mmol/L Potassium 3.9 (3.3-5.3) mmol/L Chloride 106 (98-115) mmol/L Carbon Dioxide 26.9 (21.0-32.0) mmol/L BUN 18 (6-25) mg/dL Creatinine 0.89 (0.51-1.17) mg/dL Est Cr Clr Drug Dosing 50.86 mL/min Estimated GFR (MDRD) > 60 mL/min Glucose 95 (70-110) mg/dL Calcium 9.2 (8.7-10.3) mg/dL Med Orders - Current: Current Medications Acetaminophen (Tylenol) 650 mg PO BID PRN PRN Reason: Pain Clopidogrel Bisulfate (Plavix) 75 mg PO DAILY [facility] Last Admin: 10/03/17 09:18 Dose: 75 mg Lisinopril (Prinivil) 10 mg PO DAILY [facility] Last Admin: 10/03/17 09:18 Dose: 10 mg Lorazepam (Ativan) 0.5 mg PO QAM [facility] Last Admin: 10/03/17 09:19 Dose: 0.5 mg Meloxicam (Mobic) 7.5 mg PO QAM [facility] Last Admin: 10/03/17 09:16 Dose: 7.5 mg Paroxetine HCl (Paxil) 40 mg PO DAILY [facility] Last Admin: 10/03/17 09:18 Dose: 40 mg Sodium Chloride (Syrex Flush) 5 ml FLUSH Q8HR PRN PRN Reason: Keep Vein Open Last Admin: 10/02/17 11:28 Dose: 5 ml Sodium Chloride (Normal Saline) 50 ml FLUSH ASDIRECTED [facility] Discontinued Medications Aspirin (Ecotrin) 325 mg PO DAILY [facility] Last Admin: 10/02/17 09:23 Dose: 325 mg Atropine Sulfate (Atropine 0.1 Mg/Ml) 0 mg IVPUSH ASDIRECTED PRN PRN Reason: Heart Ceftriaxone Sodium (Rocephin) Confirm Administered Dose 1 gm .ROUTE .STK-MED ONE Stop: 10/02/17 03:04 Last Admin: 10/02/17 03:30 Dose: 1 gm Ceftriaxone Sodium (Rocephin) 1 gm IVPUSH Q24H [facility] Last Admin: 10/02/17 04:08 Dose: Not Given Ceftriaxone Sodium (Rocephin) 1 gm IM ONETIME ONE Stop: 10/03/17 00:44 Last Admin: 10/03/17 01:09 Dose: 1 gm Enalaprilat (Vasotec Iv) 1.25 mg IVPUSH Q6H PRN PRN Reason: Hypertension Epinephrine HCl (Epinephrine 1:10,000) 1 mg IVPUSH ASDIRECTED PRN PRN Reason: Heart Sodium Chloride (Normal Saline) 500 mls @ 500 drops/hr IV .BOLUS [facility] Iopamidol (Isovue-300 (61%)) 75 ml IV ONETIME ONE Stop: 10/02/17 16:20 Last Admin: 10/02/17 18:26 Dose: Not Given Lidocaine HCl (Xylocaine 2%) 0 mg IVPUSH ASDIRECTED PRN PRN Reason: Heart Nitroglycerin (Nitrostat) 0.4 mg SL ASDIRECTED PRN PRN Reason: Heart Non-Formulary Medication (Paroxetine [Paxil]) 40 mg PO QAM [facility] Last Admin: 10/02/17 09:23 Dose: 40 mg - Exam General: Alert, Oriented Lungs: Clear to Auscultation, Normal Respiratory Effort Cardiovascular: Regular Rate, Regular Rhythm GI/Abdominal Exam: Normal Bowel Sounds, Soft, Non-Tender, No Organomegaly, No Distention, No Abnormal Bruit, No Mass, Pelvis Stable Back Exam: Normal Inspection, Full Range of Motion Extremities: Normal Inspection, Normal Range of Motion, Non-Tender, No Pedal Edema, Normal Capillary Refill Skin: Warm, Dry, Intact Neurological: No New Focal Deficit Psy/Mental Status: Alert, Normal Affect, Normal Mood - Problem List Review Problem List Initiated/Reviewed/Updated: Yes - Assessment Assessment:: TIA Weakness UTI HTN Arthritis Dementia Increasing abdominal girth - Plan Plan:: TIA. Discontinue ASA, start plavix 75mg PO daily. MRI on of brain with and without contrast as well as carotid U/S bilaterally. Weakness. PT eval and treat on Wednesday. UTI. change antibiotic to keflex 500mg PO Q6- no growth on urine culture after 2 days HTN. Start lisinopril 10 mg PO daily. Arthritis. Restart meloxicam. Dementia. Stable. Increasing abdominal girth. CT abdomen/pelvis- NAD; large bowel movement this am. No abdominal complaints today
[2017-10-03] MEDS: Cephalexin 250 MG Cap PO SCH ×3 (12:26→23:52)
[2017-10-04] MEDS: Cephalexin 250 MG Cap PO SCH ×4 (05:52→22:27)
[2017-10-04] MEDS: Lisinopril 10 MG Tab PO SCH (08:57)
[2017-10-04] MEDS: Clopidogrel 75 MG Tab PO SCH (08:58)
[2017-10-04] MEDS: PARoxetine 20 MG Tab PO SCH (08:58)
[2017-10-04] MEDS: LORazepam 0.5 MG Tab PO SCH (08:59)
--- NOTE | 2017-10-04 13:55 | PCM.PN ---
- General Info Date of Service: 10/04/17 Admission Dx/Problem (Free Text): TIA, left sided weakness. - Review of Systems Systems Review Comment:: Viridiana is seen today on inpatient rounds. She did well through the weekend. She had a large BM yesterday and is feeling better. CT abdomen/pelvis done due to increasing abdominal girth without weight change was WNL. She had an episode this morning where her baoulyzk-vz-dhv stated her left arm was "waving around and I asked her what she was doing and she was trying to get it to her hair but it wasn't going there". PT toya was in and felt that she would be appropriate to go to the MD, at least for some PT, prior to going home as she would be more than an assist of 1 at this time and she is still having some difficulty with her gait. Sabra (Cnybzgwa-bh-mho), mentioned that her family may not want her to be on any medications and "just let nature take it's course if that is what is meant to be", given her dementia. Sabra wanted PT's thoughts and then would be in touch with the family about what they decided to do. Viridiana is denying any pain. - Patient Data Vitals - Most Recent: Last Vital Signs Temp 98.5 F 10/04/17 06:41 Pulse 74 10/04/17 06:41 Resp 18 10/04/17 06:41 BP 128/64 10/04/17 08:57 Pulse Ox 94 L 10/04/17 08:20 Weight - Most Recent: 200 lb I&O - Last 24 Hours: Intake & Output 10/03/17 10/04/17 10/04/17 22:59 06:59 14:59 Intake Total 500 300 Balance 500 300 Med Orders - Current: Current Medications Acetaminophen (Tylenol) 650 mg PO BID PRN PRN Reason: Pain Cephalexin (Keflex) 500 mg PO Q6HR [facility] Last Admin: 10/04/17 11:39 Dose: 500 mg Clopidogrel Bisulfate (Plavix) 75 mg PO DAILY [facility] Last Admin: 10/04/17 08:58 Dose: 75 mg Lisinopril (Prinivil) 10 mg PO DAILY [facility] Last Admin: 10/04/17 08:57 Dose: 10 mg Lorazepam (Ativan) 0.5 mg PO QAM [facility] Last Admin: 10/04/17 08:59 Dose: 0.5 mg [facility] ([facility]) [facility] Last Admin: 10/04/17 08:58 Dose: 7.5 mg Paroxetine HCl (Paxil) 40 mg PO DAILY [facility] Last Admin: 10/04/17 08:58 Dose: 40 mg Sodium Chloride (Syrex Flush) 5 ml FLUSH Q8HR PRN PRN Reason: Keep Vein Open Last Admin: 10/02/17 11:28 Dose: 5 ml Discontinued Medications Aspirin (Ecotrin) 325 mg PO DAILY [facility] Last Admin: 10/02/17 09:23 Dose: 325 mg Atropine Sulfate (Atropine 0.1 Mg/Ml) 0 mg IVPUSH ASDIRECTED PRN PRN Reason: Heart Ceftriaxone Sodium (Rocephin) Confirm Administered Dose 1 gm .ROUTE .STK-MED ONE Stop: 10/02/17 03:04 Last Admin: 10/02/17 03:30 Dose: 1 gm Ceftriaxone Sodium (Rocephin) 1 gm IVPUSH Q24H [facility] Last Admin: 10/02/17 04:08 Dose: Not Given Ceftriaxone Sodium (Rocephin) 1 gm IM ONETIME ONE Stop: 10/03/17 00:44 Last Admin: 10/03/17 01:09 Dose: 1 gm Enalaprilat (Vasotec Iv) 1.25 mg IVPUSH Q6H PRN PRN Reason: Hypertension Epinephrine HCl (Epinephrine 1:10,000) 1 mg IVPUSH ASDIRECTED PRN PRN Reason: Heart Sodium Chloride (Normal Saline) 500 mls @ 500 drops/hr IV .BOLUS [facility] Iopamidol (Isovue-300 (61%)) 75 ml IV ONETIME ONE Stop: 10/02/17 16:20 Last Admin: 10/02/17 18:26 Dose: Not Given Lidocaine HCl (Xylocaine 2%) 0 mg IVPUSH ASDIRECTED PRN PRN Reason: Heart Nitroglycerin (Nitrostat) 0.4 mg SL ASDIRECTED PRN PRN Reason: Heart Non-Formulary Medication (Paroxetine [Paxil]) [facility] Last Admin: 10/02/17 09:23 Dose: 40 mg Paroxetine HCl (Paxil) 40 mg PO .STK-MED ONE Stop: 10/02/17 09:24 Sodium Chloride (Normal Saline) 50 ml FLUSH ASDIRECTED [facility] - Exam General: Alert, Oriented, Cooperative, No Acute Distress Lungs: Clear to Auscultation, Normal Respiratory Effort Cardiovascular: Regular Rate, Regular Rhythm, No Murmurs Extremities: Normal Inspection, No Pedal Edema Neurological: No New Focal Deficit, Strength Equal Bilateral - Problem List & Annotations (1) Hypertension SNOMED Code(s): 02562398 Code(s): I10 - ESSENTIAL (PRIMARY) HYPERTENSION Status: Acute Current Visit: Yes Qualifiers: Hypertension type: unspecified Qualified Code(s): I10 - Essential (primary ) hypertension (2) Urinary tract infection SNOMED Code(s): 81761476 Code(s): N39.0 - URINARY TRACT INFECTION, SITE NOT SPECIFIED Status: Acute Current Visit: Yes Qualifiers: Urinary tract infection type: acute cystitis Hematuria presence: without hematuria Qualified Code(s): N30.00 - Acute cystitis without hematuria (3) Weakness SNOMED Code(s): 23000171 Code(s): R53.1 - WEAKNESS Status: Acute Current Visit: Yes (4) TIA (transient ischemic attack) SNOMED Code(s): 304282208 Code(s): G45.9 - TRANSIENT CEREBRAL ISCHEMIC ATTACK, UNSPECIFIED Status: Acute Current Visit: No Qualifiers: Transient cerebral ischemia type: unspecified Qualified Code(s): G45.9 - Transient cerebral ischemic attack, unspecified (5) Dementia SNOMED Code(s): 56879783 Code(s): F03.90 - UNSPECIFIED DEMENTIA WITHOUT BEHAVIORAL DISTURBANCE Status: Acute Current Visit: Yes (6) Increased abdominal girth SNOMED Code(s): 555635608 Code(s): R19.8 - OTH SYMPTOMS AND SIGNS INVOLVING THE DGSTV SYS AND ABDOMEN Status: Acute Current Visit: Yes - Problem List Review Problem List Initiated/Reviewed/Updated: Yes - Assessment Assessment:: TIA Weakness UTI HTN Arthritis Dementia Increasing abdominal girth Depression - Plan Plan:: TIA. plavix 75mg PO daily. MRI on of brain with and without contrast as well as carotid U/S bilaterally. Waiting to see if family wants to proceed with this imaging. Weakness. Anticipate d/c to [facility] tomorrow. UTI. change antibiotic to keflex 500mg PO Q6- no growth on urine culture after 2 days HTN. Start lisinopril 10 mg PO daily. This has worked well for her BP control. Arthritis. Restart meloxicam. Dementia. Stable. Increasing abdominal girth. CT abdomen/pelvis- NAD; large bowel movement this am. No abdominal complaints today Depression. This is a stable condition that has not changed at all in many years. It is not major depressive disorder. It is well controlled on her outpatient medications. Anticipate discharge to MD tomorrow.
[2017-10-04] MEDS ORDERED: Phenazopyridine 100 MG Tab PO STA (21:04)
[2017-10-05] MEDS: Cephalexin 250 MG Cap PO SCH ×2 (05:56→10:58)
[2017-10-05 06:15] VITALS: BP 142/65
[2017-10-05] MEDS: Lisinopril 10 MG Tab PO SCH (08:02)
[2017-10-05] MEDS: Clopidogrel 75 MG Tab PO SCH (08:02)
[2017-10-05] MEDS: PARoxetine 20 MG Tab PO SCH (08:02)
[2017-10-05] MEDS: LORazepam 0.5 MG Tab PO SCH (08:05)
--- NOTE | 2017-10-05 08:42 | PCM.DCSUM1 ---
Discharge Summary - Hospital Course Free Text/Narrative:: Viridiana is being discharged today from an inpatient stay of 10/02/17 - 10/05/17. She is being discharged to [facility] for additional therapy. When she was admitted it was unclear if she was having a stroke vs. TIA vs. other. She had about 8 hours of trouble with her left side. While she was able to move it on command she was unable to walk or move her left arm or leg in a purposeful way. She had a head CT which was negative. Labs were essentially negative. She had a UA suggestive of UTI but culture has not grown anything. She as on rocephin for 2 days IV and then switched to Cephalexin 500 mg PO q 6 hours which will be discontinued at discharge due to the fact the culture was negative. Labs were unremarkable. She had a low platelet count initially but this must have been a lab error or perhaps platelet clumping as the next check her platelets were normal. EKG was NSR. She did have a PT eval and treat which confirmed that while she has intact movement from a sitting position with intact strength and neurological exam she did have difficult ambulating, as if her brain and legs were not communicating together to allow her to walk. She will be set up for carotid U/S bilaterally at discharge as well as a brain MRI. Due to the fact that she was suspected of having TIA's her ASA 325 mg was discontinued and she was started on plavix. She was also noted to be hypertensive and so lisinopril 10 mg PO daily was started and this did a good job of controlling her HTN. She has a hx of depression managed with Paxil. This is stable, it is NOT major depressive disorder. Continue with paxil as an outpatient. She will have PT at the [place] for management of her gait instability and strengthening. She denies any pain complaints. - Discharge Data Discharge Date: 10/05/17 Discharge Disposition: DC/Tfer to [facility] 03 Condition: Good - Discharge Diagnosis/Problem(s) (1) Hypertension SNOMED Code(s): 21831557 ICD Code: I10 - ESSENTIAL (PRIMARY) HYPERTENSION Status: Acute Current Visit: Yes Qualifiers: Hypertension type: unspecified Qualified Code(s): I10 - Essential (primary ) hypertension (2) Urinary tract infection SNOMED Code(s): 15871721 ICD Code: N39.0 - URINARY TRACT INFECTION, SITE NOT SPECIFIED Status: Acute Current Visit: Yes Qualifiers: Urinary tract infection type: acute cystitis Hematuria presence: without hematuria Qualified Code(s): N30.00 - Acute cystitis without hematuria (3) Weakness SNOMED Code(s): 07058730 ICD Code: R53.1 - WEAKNESS Status: Acute Current Visit: Yes (4) TIA (transient ischemic attack) SNOMED Code(s): 597813718 ICD Code: G45.9 - TRANSIENT CEREBRAL ISCHEMIC ATTACK, UNSPECIFIED Status: Acute Current Visit: No Qualifiers: Transient cerebral ischemia type: unspecified Qualified Code(s): G45.9 - Transient cerebral ischemic attack, unspecified (5) Dementia SNOMED Code(s): 90916450 ICD Code: F03.90 - UNSPECIFIED DEMENTIA WITHOUT BEHAVIORAL DISTURBANCE Status: Acute Current Visit: Yes (6) Increased abdominal girth SNOMED Code(s): 360897022 ICD Code: R19.8 - OTH SYMPTOMS AND SIGNS INVOLVING THE DGSTV SYS AND ABDOMEN Status: Acute Current Visit: Yes - Patient Summary/Data Consults: Consultations 10/02/17 11:45 PT Evaluation and Treatment [CONS] Routine - Patient Instructions Diet: Regular Diet as Tolerated Activity, Other: Patient needs assistance with activity. Other/Special Instructions: Patient needs carotid U/S bilaterally as an outpatient as well as brain MRI without contrast. - Discharge Plan Home Medications: Home Meds LORazepam [Ativan] 0.5 mg PO QAM 10/17/14 [History] PARoxetine [Paxil] 40 mg PO QAM 10/17/14 [History] Meloxicam 7.5 mg PO QAM 04/13/17 [History] Acetaminophen [Tylenol] 650 mg PO BID PRN 07/24/17 [History] metroNIDAZOLE [Vandazole 0.75% Gel] 1 applic TOP BEDTIME 10/02/17 [History] Clopidogrel [Plavix] 75 mg PO DAILY #0 tablet 10/05/17 [Rx] Lisinopril [Prinivil] 10 mg PO DAILY tablet 10/05/17 [Rx] Referrals: Adriana Wang MD [Primary Care Provider] - - Discharge Summary/Plan Comment DC Time >30 min.: No - General Info Date of Service: 10/05/17 - Review of Systems Systems Review Comment: 10 point ROS obtained, all pertinent positives listed in HPI, all other systems negative. - Patient Data Vitals - Most Recent: Last Vital Signs Temp 99.0 F 10/05/17 06:13 Pulse 80 10/05/17 06:13 Resp 18 10/05/17 06:13 BP 142/65 H 10/05/17 06:13 Pulse Ox 94 L 10/05/17 08:00 Weight - Most Recent: 200 lb I&O - Last 24 hours: Intake & Output 10/04/17 10/05/17 10/05/17 22:59 06:59 14:59 Intake Total 975 100 Balance 975 100 Med Orders - Current: Current Medications Acetaminophen (Tylenol) 650 mg PO BID PRN PRN Reason: Pain Cephalexin (Keflex) 500 mg PO Q6HR [facility] Last Admin: 10/05/17 05:56 Dose: 500 mg Clopidogrel Bisulfate (Plavix) 75 mg PO DAILY [facility] Last Admin: 10/05/17 08:02 Dose: 75 mg Lisinopril (Prinivil) 10 mg PO DAILY [facility] Last Admin: 10/05/17 08:02 Dose: 10 mg Lorazepam (Ativan) 0.5 mg PO QAM [facility] Last Admin: 10/05/17 08:05 Dose: 0.5 mg Meloxicam (Mobic) 7.5 mg PO QAM [facility] Last Admin: 10/05/17 08:02 Dose: 7.5 mg Paroxetine HCl (Paxil) 40 mg PO DAILY [facility] Last Admin: 10/05/17 08:02 Dose: 40 mg Sodium Chloride (Syrex Flush) 5 ml FLUSH Q8HR PRN PRN Reason: Keep Vein Open Last Admin: 10/02/17 11:28 Dose: 5 ml Discontinued Medications Aspirin (Ecotrin) 325 mg PO DAILY [facility] Last Admin: 10/02/17 09:23 Dose: 325 mg Atropine Sulfate (Atropine 0.1 Mg/Ml) 0 mg IVPUSH ASDIRECTED PRN PRN Reason: Heart Ceftriaxone Sodium (Rocephin) Confirm Administered Dose 1 gm .ROUTE .STK-MED ONE Stop: 10/02/17 03:04 Last Admin: 10/02/17 03:30 Dose: 1 gm Ceftriaxone Sodium (Rocephin) 1 gm IVPUSH Q24H [facility] Last Admin: 10/02/17 04:08 Dose: Not Given Ceftriaxone Sodium (Rocephin) 1 gm IM ONETIME ONE Stop: 10/03/17 00:44 Last Admin: 10/03/17 01:09 Dose: 1 gm Enalaprilat (Vasotec Iv) 1.25 mg IVPUSH Q6H PRN PRN Reason: Hypertension Epinephrine HCl (Epinephrine 1:10,000) 1 mg IVPUSH ASDIRECTED PRN PRN Reason: Heart Sodium Chloride (Normal Saline) 500 mls @ 500 drops/hr IV .BOLUS [facility] Iopamidol (Isovue-300 (61%)) 75 ml IV ONETIME ONE Stop: 10/02/17 16:20 Last Admin: 10/02/17 18:26 Dose: Not Given Lidocaine HCl (Xylocaine 2%) 0 mg IVPUSH ASDIRECTED PRN PRN Reason: Heart Nitroglycerin (Nitrostat) 0.4 mg SL ASDIRECTED PRN PRN Reason: Heart Non-Formulary Medication (Paroxetine [Paxil]) 40 mg PO QAM [facility] Last Admin: 10/02/17 09:23 Dose: 40 mg Paroxetine HCl (Paxil) 40 mg PO .STK-MED ONE Stop: 10/02/17 09:24 Phenazopyridine HCl (Pyridium) 200 mg PO NOW STA Stop: 10/04/17 21:05 Last Admin: 10/04/17 22:26 Dose: 200 mg Sodium Chloride (Normal Saline) 50 ml FLUSH ASDIRECTED [facility] - Exam General: Reports: Alert, Oriented, Cooperative, No Acute Distress Lungs: Reports: Clear to Auscultation, Normal Respiratory Effort Cardiovascular: Reports: Regular Rate, Regular Rhythm, No Murmurs GI/Abdominal Exam: Normal Bowel Sounds Extremities: No Pedal Edema *Q Meaningful Use (DIS) - VTE *Q VTE Criteria *Q: - Stroke *Q Stroke Criteria *Q: - AMI *Q AMI Criteria *Q:
== END 2017-10-05 11:42 | DRG 69 ==
LOC: KA.ED 01:25 → KA.MS 03:00
PROVIDERS: ADMIT Internal Medicine; ATTEND Internal Medicine
DX: G45.9 Transient cerebral ischemic attack, unspecified (principal); N30.00 Acute cystitis without hematuria; I10 Essential (primary) hypertension; F41.8 Other specified anxiety disorders; R53.1 Weakness; F03.90 Unspecified dementia, unspecified severity, without behavioral disturbance, psychotic disturbance, mood disturbance, and anxiety; R19.8 Other specified symptoms and signs involving the digestive system and abdomen; Z79.899 Other long term (current) drug therapy; Z88.8 Allergy status to other drugs, medicaments and biological substances; Z86.73 Personal history of transient ischemic attack (TIA), and cerebral infarction without residual deficits; D69.6 Thrombocytopenia, unspecified; D72.829 Elevated white blood cell count, unspecified
CPT/HCPCS: 36415; 70450; 71010; 74177; 80048; 80053; 81001; 82550; 82553; 82962; 84484; 85025; 85027; 85610; 85730; 87070; 87086; 93005; 97163-GP; 99285; A9270-GY; J0696; Q9967

== ENCOUNTER 2018-01-07 10:20 | Emergency (ER) | payer MEDICARE ==
[2018-01-07 10:30] VITALS: BP 124/55
--- NOTE | 2018-01-07 10:57 | EDM.PDOC ---
ED HPI GENERAL MEDICAL PROBLEM - General Chief Complaint: General Stated Complaint: WEAK IN LEGS, FALLING Time Seen by Provider: 01/07/18 10:31 Source of Information: Reports: Patient, Family (dtr-n-law) History Limitations: Reports: No Limitations - History of Present Illness INITIAL COMMENTS - FREE TEXT/NARRATIVE: Patient presents from private residence where she lives with her son and dtr-n- law. She has been home with them for 6 weeks after a 6-week stay in the [place] after some weakness and stroke-like symptoms that was felt to be non-stroke. Dtr tells me the pt was weak on the right side yesterday as she had been sometimes previously and wasn't as alert or interactive as usual. Two people had a difficult getting her from bed to wheelchair yesterday. Pt slept very soundly for 12 hours last night. Today she seems better but is still dizzy and weak also with some double vision. She has had dysuria for two days but doesn' t think it's a big deal. - Related Data Allergies Allergy/AdvReac Type Severity Reaction Status Date / Time codeine Allergy Cannot Verified 01/07/18 10:54 Remember Home Meds: Home Meds LORazepam [Ativan] 0.5 mg PO QAM 10/17/14 [History] PARoxetine [Paxil] 40 mg PO QAM 10/17/14 [History] Meloxicam 7.5 mg PO QAM 04/13/17 [History] Acetaminophen [Tylenol] 650 mg PO BID PRN 07/24/17 [History] metroNIDAZOLE [Vandazole 0.75% Gel] 1 applic TOP BEDTIME 10/02/17 [History] Lisinopril [Prinivil] 10 mg PO DAILY tablet 10/05/17 [Rx] Clobetasol [Clobetasol 0.05%] 1 applic TOP ASDIRECTED 01/07/18 [History] Past Medical History HEENT History: Reports: Cataract Gastrointestinal History: Reports: Hiatal Hernia Genitourinary History: Reports: UTI, Recurrent [employer] History: Reports: Musculoskeletal History: Reports: None Neurological History: Reports: CVA Other Neuro History: March 2017 - CVA. dementia Psychiatric History: Reports: Anxiety, Dementia, Depression Endocrine/Metabolic History: Reports: Obesity/BMI 30+ Dermatologic History: Reports: Other (See Below) Other Dermatologic History: CHRONIC 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 - Infectious Disease History Infectious Disease History: Reports: Other (See Below) Other Infectious Disease History: unable to gather - Past Surgical History HEENT Surgical History: Reports: Cataract Surgery GI Surgical History: Reports: Cholecystectomy, Colonoscopy, EGD Female Surgical History: Reports: None Endocrine Surgical History: Reports: None Neurological Surgical History: Reports: None Musculoskeletal Surgical History: Reports: Other (See Below) Other Musculoskeletal Surgeries/Procedures:: BILATERAL WRIST FX Dermatological Surgical History: Reports: None Social & Family History - Family History Family Medical History: Noncontributory - Tobacco Use Smoking Status *Q: Never Smoker Second Hand Smoke Exposure: No - Caffeine Use Caffeine Use: Reports: Coffee Other Caffeine Use: DIET AND CAFFEINE FREE. 1 CUP OF COFFEE A DAY - Recreational Drug Use Recreational Drug Use: No ED ROS GENERAL - Review of Systems Review Of Systems: See Below Constitutional: Reports: Weakness. Denies: Fever, Chills HEENT: Reports: Vision Change (double). Denies: Eye Discharge, Hearing Loss, Throat Pain Respiratory: Denies: Shortness of Breath, Cough Cardiovascular: Reports: Lightheadedness (dizzy). Denies: Chest Pain, Syncope GI/Abdominal: Denies: Abdominal Pain, Diarrhea, Nausea, Vomiting : Reports: Dysuria. Denies: Flank Pain Musculoskeletal: Reports: No Symptoms Skin: Denies: Cyanosis, Jaundice, Mottled, Pallor, Diaphoresis Neurological: Reports: Dizziness. Denies: Confusion, Headache, Seizure, Syncope , Trouble Speaking Psychiatric: Denies: Agitation, Anxiety, Confusion ED EXAM, GENERAL - Physical Exam Exam: See Below Exam Limited By: No Limitations General Appearance: Alert, WD/WN, No Apparent Distress (pleasant and jovial) Eye Exam: Bilateral Eye: EOMI, Normal Inspection, PERRL Ears: Normal External Exam, Hearing Grossly Normal Nose: Normal Inspection, No Blood Throat/Mouth: Normal Inspection, Normal Lips, Normal Voice, No Airway Compromise Head: Atraumatic, Normocephalic, Other (no facial droop) Neck: Normal Inspection, Supple, Non-Tender, Full Range of Motion. No: Carotid Bruit Respiratory/Chest: No Respiratory Distress, Lungs Clear, Normal Breath Sounds, No Accessory Muscle Use Cardiovascular: Normal Peripheral Pulses, Regular Rate, Rhythm, No Edema, No Gallop, No JVD, No Murmur Peripheral Pulses: 2+: Carotid (L), Carotid (R), Radial (L), Radial (R), Dorsalis Pedis (L), Dorsalis Pedis (R) GI/Abdominal: Normal Bowel Sounds, Soft, Non-Tender, No Organomegaly, No Distention, No Abnormal Bruit Back Exam: Normal Inspection, Full Range of Motion. No: CVA Tenderness (L), CVA Tenderness (R) Extremities: Normal Inspection, Normal Range of Motion, Non-Tender, No Pedal Edema, Normal Capillary Refill, Other (symmetric hand flight service specialist, foot plantar/ dorsiflexion; equal arm strength and symmetric leg raise; distal CMS intact) Neurological: Alert, Oriented, CN II-XII Intact, Normal Cognition, No Motor/ Sensory Deficits Psychiatric: Normal Affect, Normal Mood Skin Exam: Warm, Dry, Intact, Normal Color, No Rash Course - Vital Signs Last Recorded V/S: Last Vital Signs Temp 98.6 F 01/07/18 10:28 Pulse 83 01/07/18 10:28 Resp 20 01/07/18 10:28 BP 124/55 L 01/07/18 10:28 Pulse Ox 93 L 01/07/18 10:28 - Orders/Labs/Meds Orders: Active Orders 24 hr Category Date Time Status EKG Documentation Completion [RC] ASDIRECTED Care 01/07/18 10:48 Ordered CULTURE URINE [RM] Stat Lab 01/07/18 12:05 Ordered EKG 12 Lead [EK] Routine Ther 01/07/18 10:48 Ordered Labs: Laboratory Tests 01/07/18 01/07/18 01/07/18 Range/Units 10:45 10:45 10:45 WBC 8.3 (5.0-10.0) 10^3/uL RBC 4.42 (3.80-5.50) 10^6/uL Hgb 13.6 (12.0-16.0) g/dL Hct 42.3 (37.0-47.0) % MCV 95.7 H (82.0-92.0) fL MCH 30.8 (27.0-31.0) pg MCHC 32.2 (32.0-36.0) g/dL RDW 13.2 (11.5-14.5) % Plt Count 259 (150-300) 10^3/uL MPV 8.5 (7.4-10.4) fL Neut % (Auto) 62.8 (50.0-70.0) % Lymph % (Auto) 26.0 (20.0-40.0) % [place] % (Auto) 9.0 H (2.0-8.0) % Eos % (Auto) 1.4 (1.0-3.0) % Baso % (Auto) 0.8 (0.0-1.0) % Neut # (Auto) 5.2 (2.5-7.0) 10^3/uL Lymph # (Auto) 2.2 (1.0-4.0) 10^3/uL [place] # (Auto) 0.7 (0.1-0.8) 10^3/uL Eos # (Auto) 0.1 (0.1-0.3) 10^3/uL Baso # (Auto) 0.1 (0.0-0.1) 10^3/uL Sodium 142 (136-145) mmol/L Potassium 4.3 (3.3-5.3) mmol/L Chloride 104 (98-115) mmol/L Carbon Dioxide 25.0 (21.0-32.0) mmol/L BUN 34 H (6-25) mg/dL Creatinine 1.13 (0.51-1.17) mg/dL Est Cr Clr Drug Dosing 34.29 mL/min Estimated GFR (MDRD) 46 mL/min Glucose 117 H (70-110) mg/dL Calcium 9.3 (8.7-10.3) mg/dL Total Bilirubin 0.5 (0.2-1.0) mg/dL AST 14 L (15-37) U/L ALT 24 (12-78) U/L Alkaline Phosphatase 73 (46-116) IU/L Troponin I < 0.04 (0.00-0.070) ng/mL Total Protein 7.2 (6.4-8.2) g/dL Albumin 4.00 (3.00-4.80) g/dL Specimen Type Urine Color (YELLOW) Urine Appearance (CLEAR) Urine pH (5.0-9.0) Ur Specific [place] (1.005-1.030) Urine Protein (NEGATIVE) mg/dL Urine Glucose (UA) (NEGATIVE) mg/dL Urine Ketones (NEGATIVE) mg/dL Urine Occult Blood (NEGATIVE) Urine Nitrite (NEGATIVE) Urine Bilirubin (NEGATIVE) Urine Urobilinogen (0.2-1.0) E.U./dL Ur Leukocyte Esterase (NEGATIVE) Urine RBC /HPF Urine WBC /HPF Ur Epithelial Cells /LPF Urine Bacteria (NONE TO FEW) /HPF Urine Mucus (NEGATIVE) /LPF 01/07/18 Range/Units 11:29 WBC (5.0-10.0) 10^3/uL RBC (3.80-5.50) 10^6/uL Hgb (12.0-16.0) g/dL Hct (37.0-47.0) % MCV (82.0-92.0) fL MCH (27.0-31.0) pg MCHC (32.0-36.0) g/dL RDW (11.5-14.5) % Plt Count (150-300) 10^3/uL MPV (7.4-10.4) fL Neut % (Auto) (50.0-70.0) % Lymph % (Auto) (20.0-40.0) % [place] % (Auto) (2.0-8.0) % Eos % (Auto) (1.0-3.0) % Baso % (Auto) (0.0-1.0) % Neut # (Auto) (2.5-7.0) 10^3/uL Lymph # (Auto) (1.0-4.0) 10^3/uL [place] # (Auto) (0.1-0.8) 10^3/uL Eos # (Auto) (0.1-0.3) 10^3/uL Baso # (Auto) (0.0-0.1) 10^3/uL Sodium (136-145) mmol/L Potassium (3.3-5.3) mmol/L Chloride (98-115) mmol/L Carbon Dioxide (21.0-32.0) mmol/L BUN (6-25) mg/dL Creatinine (0.51-1.17) mg/dL Est Cr Clr Drug Dosing mL/min Estimated GFR (MDRD) mL/min Glucose (70-110) mg/dL Calcium (8.7-10.3) mg/dL Total Bilirubin (0.2-1.0) mg/dL AST (15-37) U/L ALT (12-78) U/L Alkaline Phosphatase (46-116) IU/L Troponin I (0.00-0.070) ng/mL Total Protein (6.4-8.2) g/dL Albumin (3.00-4.80) g/dL Specimen Type Urinblad Urine Color Yellow (YELLOW) Urine Appearance Clear (CLEAR) Urine pH 5.5 (5.0-9.0) Ur Specific [place] 1.025 (1.005-1.030) Urine Protein Negative (NEGATIVE) mg/dL Urine Glucose (UA) Negative (NEGATIVE) mg/dL Urine Ketones Negative (NEGATIVE) mg/dL Urine Occult Blood Negative (NEGATIVE) Urine Nitrite Negative (NEGATIVE) Urine Bilirubin Negative (NEGATIVE) Urine Urobilinogen 0.2 (0.2-1.0) E.U./dL Ur Leukocyte Esterase Negative (NEGATIVE) Urine RBC 0-5 /HPF Urine WBC 5-10 H /HPF Ur Epithelial Cells Rare /LPF Urine Bacteria Occasional (NONE TO FEW) /HPF Urine Mucus Rare H (NEGATIVE) /LPF - Re-Assessments/Exams Free Text/Narrative Re-Assessment/Exam: 01/07/18 12:08 Discussed findings and treatment plan with patient and dtr-n-law. Pt had a UTI a month ago that was treated with Bactrim. She has had frequent UTIs all her life she says. Will culture this to hopefully clear it up completely. Pt discharged in stable condition. Departure - Departure Time of Disposition: 12:06 Disposition: Home, Self-Care 01 Condition: Good Clinical Impression: UTI (urinary tract infection) Qualifiers: Urinary tract infection type: acute cystitis Hematuria presence: without hematuria Qualified Code(s): N30.00 - Acute cystitis without hematuria - Discharge Information Referrals: Adriana Wang MD [Primary Care Provider] - Forms: ED Department Discharge Additional Instructions: 1. Drink 8 cups of water each day. 2. Take the antibiotic as directed. 3. Follow up with your PCP in a week for recheck unless worsening then JERI. - My Orders Last 24 Hours: My Active Orders 01/07/18 10:48 EKG Documentation Completion [RC] ASDIRECTED EKG 12 Lead [EK] Routine 01/07/18 12:05 CULTURE URINE [RM] Stat - Assessment/Plan Last 24 Hours: My Active Orders 01/07/18 10:48 EKG Documentation Completion [RC] ASDIRECTED EKG 12 Lead [EK] Routine 01/07/18 12:05 CULTURE URINE [RM] Stat
== END 2018-01-07 14:15 | disposition home or self-care (01) ==
LOC: KA.ED 10:24
DX: N30.00 Acute cystitis without hematuria (principal); Z88.5 Allergy status to narcotic agent; Z79.899 Other long term (current) drug therapy
CPT/HCPCS: 80053; 81001; 84484; 85025; 87086; 99284; 99285